=== PATIENT | female | born 1985 | race Caucasian/White ===

== ENCOUNTER 2017-05-26 10:46 | Emergency (ER) | payer MEDICAID ==
[~2017-05-26] VITALS: Ht 165.1 cm; Wt 83.5 kg
[~2017-05-26 10:46] MED LIST: CEPH-443 PO; ESOM20CA; PHEN-537 PO
[2017-05-26 10:54] VITALS: Ht 165.1 cm; Wt 83.5 kg
[2017-05-26] MEDS ORDERED: FLUT9.9S NASAL (11:07)
[2017-05-26] MEDS ORDERED: AZIT250T94 PO (11:07)
[2017-05-26] MEDS ORDERED: [UNRECOGNIZED DRUG - CODE] PO (11:07)
[2017-05-26] MEDS ORDERED: [UNRECOGNIZED DRUG - CODE] PO (11:08)
--- NOTE | 2017-05-26 11:13 | ERD ---
ER Documentation Chief Complaint Date/Time DATE: 05/26/17 TIME: 11:11 Chief Complaint Complains of right ear pain and sorethroat HPI This 32-year-old female presents with right ear pain for last 3-4 days. She also has sore throat and nasal congestion. There is no history of fevers, chest pain, shortness breath, vomiting, abdominal pain ROS All systems reviewed and are negative except as per history of present illness. Medications Home Meds Active Scripts Guaifen/Phenyleph/Acetaminophn (Sudafed PE Pressure+Pain+Mucus) 1 Each Tablet, 1 EACH PO BID, #14 TAB Prov:ASHLEY FIELDS MD 05/26/17 Fluticasone Propionate (Flonase Allergy Relief) 9.9 Ml [place].susp, 1 SPRAY NASAL DAILY, #1 BOTTLE TO EACH NOSTRIL Prov:ASHLEY FIELDS MD 05/26/17 Azithromycin* (Zithromax*) 250 Mg Tablet, 250 MG PO .ZPACK DIRECTED, #6 TAB TAKE 500 MG (2 TABS) THE FIRST DAY THEN 250 MG (1 TAB) DAYS 2-5 Prov:ASHLEY FIELDS MD 05/26/17 Phenazopyridine Hcl* (Pyridium*) 100 Mg Tab, 100 MG PO TID Y for URINARY PAIN, # 8 TAB Prov:LEISA DESAI PA-C 09/11/16 Cephalexin* (Keflex*) 500 Mg Capsule, 500 MG PO QID for 7 Days, CAP Prov:LEISA DESAI PA-C 09/11/16 Reported Medications Esomeprazole Mag Trihydrate (Nexium) 20 Mg Capsule. 07/10/14 Discontinued Scripts Guaifen/Phenyleph/Acetaminophn (Tylenol Sinus Severe Caplet) 1 Each Tablet, 1 EACH PO BID, #14 TAB Prov:ASHLEY FIELDS MD 05/26/17 Allergies Allergies: Coded Allergies: No Known Allergy (Unverified , 07/10/14) PMhx/Soc History of Surgery: No Anesthesia Reaction: No Hx Neurological Disorder: No Hx Respiratory Disorders: No Hx Cardiac Disorders: No Hx Psychiatric Problems: No Hx Miscellaneous Medical Probl: No Hx Alcohol Use: No Hx Substance Use: No Hx Tobacco Use: No Physical Exam Vitals Vital Signs Date Time Temp Pulse Resp B/P Pulse Ox O2 Delivery O2 Flow Rate FiO2 05/26/17 10:54 98.6 81 20 126/65 94 Physical Exam Const: [], [id number] per Head: Atraumatic Eyes: Normal Conjunctiva ENT: Normal External Ears, Nose and Mouth. Right TM is opaque with yellow fluid behind the TM. Left TM shows clear fluid. There is postnasal drip and airway is patent. Neck: Full range of motion..~ No meningismus. Resp: Clear to auscultation bilaterally Cardio: Regular rate and rhythm, no murmurs Abd: Soft, non tender, non distended. Normal bowel sounds Skin: No petechiae or rashes Back: No midline or flank tenderness Ext: No cyanosis, or edema Neur: Awake and alert Psych: Normal Mood and Affect Procedures/MDM Patient presents with URI symptoms and signs of otitis media. She will treated with Zithromax, Tylenol sinus and Flonase. The patient was stable with no new complaints during the ER course. Clinically, there is no current evidence to suggest meningitis, sepsis, acute abdomen, pneumonia, acute coronary syndrome, pulmonary embolism, or any other emergent condition appearing to require further evaluation or hospitalization. The patient should certainly return for any new or worsening symptoms per the aftercare instructions. They should otherwise follow-up with her primary care doctor for reevaluation this week. Departure Diagnosis: Primary Impression: Otitis media Otitis media type: unspecified Laterality: right Chronicity: unspecified Qualified Code: H66.91 - Right otitis media, unspecified chronicity, unspecified otitis media type Condition: Stable Patient Instructions: Otitis Media, Abx Tx (Adult) Additional Instructions: Cheque otro vez con young doctor primario en el proximo [place] or regresa para mas o nueva simptomas. ASHLEY FIELDS MD May 26, 2017 11:13
== END 2017-05-26 11:28 | disposition home or self-care (01) ==
LOC: FTE 10:46
DX: H66.91 Otitis media, unspecified, right ear (principal)
CPT/HCPCS: 99283

== ENCOUNTER 2017-06-10 10:21 | Emergency (ER) | END 2017-06-10 10:54 | disposition home or self-care (01) | DX: M25.531 Pain in right wrist (principal); M25.532 Pain in left wrist; L25.9 Unspecified contact dermatitis, unspecified cause ==

== ENCOUNTER 2017-09-01 14:17 | Emergency (ER) | payer MEDICAID ==
[~2017-09-01] VITALS: Ht 160 cm; Wt 90.0 kg
[~2017-09-01 14:17] MED LIST changes: +AZIT250T94 PO; +CETI-240 PO; +FLUT9.9S NASAL; +PRED20TA PO; +TRIA15CR55 TOP; +[UNRECOGNIZED DRUG - CODE] PO
[2017-09-01 14:22] VITALS: Ht 160 cm; Wt 90.0 kg
[2017-09-01] MEDS ORDERED: AMOX500C2 PO (15:13)
[2017-09-01] MEDS ORDERED: IBUP-1542 PO (15:13)
--- NOTE | 2017-09-01 15:15 | ERD ---
ER Documentation Chief Complaint Date/Time DATE: 09/01/17 TIME: 15:[address],ear ache HPI 32-year-old female presents with a 2 day history of sore throat ear pain subjective fevers. She has cough, vomiting, abdominal pain, neck stiffness, rashes. ROS All systems reviewed and are negative except as per history of present illness. Medications Home Meds Active Scripts Ibuprofen* (Motrin*) 600 Mg Tab, 600 MG PO Q6, #15 TAB Prov:ASHLEY FIELDS MD 09/01/17 Amoxicillin* (Amoxicillin*) 500 Mg Cap, 500 MG PO TID for 10 Days, CAP Prov:ASHLEY FIELDS MD 09/01/17 Cetirizine Hcl* (Cetirizine Hcl*) 10 Mg Tablet, 10 MG PO DAILY, #15 TAB Prov:ASHLEY FIELDS MD 06/10/17 Triamcinolone Acetonide (Triamcinolone Acetonide) 0.1% - 15 Gm Cream.gm., 1 APPLIC TOP QID for 7 Days, #1 TUB 30G Prov:ASHLEY FIELDS MD 06/10/17 Prednisone* (Prednisone*) 20 Mg Tab, 40 MG PO DAILY for 5 Days, TAB Prov:ASHLEY FIELDS MD 06/10/17 Guaifen/Phenyleph/Acetaminophn (Sudafed PE Pressure+Pain+Mucus) 1 Each Tablet, 1 EACH PO BID, #14 TAB Prov:ASHLEY FIELDS MD 05/26/17 Fluticasone Propionate (Flonase Allergy Relief) 9.9 Ml [place].susp, 1 SPRAY NASAL DAILY, #1 BOTTLE TO EACH NOSTRIL Prov:ASHLEY FIELDS MD 05/26/17 Azithromycin* (Zithromax*) 250 Mg Tablet, 250 MG PO .ZPACK DIRECTED, #6 TAB TAKE 500 MG (2 TABS) THE FIRST DAY THEN 250 MG (1 TAB) DAYS 2-5 Prov:ASHLEY FIELDS MD 05/26/17 Phenazopyridine Hcl* (Pyridium*) 100 Mg Tab, 100 MG PO TID Y for URINARY PAIN, # 8 TAB Prov:LEISA DESAI PA-C 09/11/16 Cephalexin* (Keflex*) 500 Mg Capsule, 500 MG PO QID for 7 Days, CAP Prov:LEISA DESAI PA-C 09/11/16 Reported Medications Esomeprazole Mag Trihydrate (Nexium) 20 Mg Capsule. 07/10/14 Allergies Allergies: Coded Allergies: No Known Allergy (Unverified , 06/10/17) PMhx/Soc History of Surgery: No Anesthesia Reaction: No Hx Neurological Disorder: No Hx Respiratory Disorders: No Hx Cardiac Disorders: No Hx Psychiatric Problems: No Hx Miscellaneous Medical Probl: No Hx Alcohol Use: No Hx Substance Use: No Hx Tobacco Use: No Physical Exam Vitals Vital Signs Date Time Temp Pulse Resp B/P Pulse Ox O2 Delivery O2 Flow Rate FiO2 09/01/17 14:22 98.1 99 18 140/90 99 Physical Exam Const: [] Letter, [id number]. Head: Atraumatic Eyes: Normal Conjunctiva ENT: Normal External Ears, Nose and Mouth. TMs normal. Tonsils are 3+ with exudate. Uvula midline and airway patent. Neck: Full range of motion..~ No meningismus. Resp: Clear to auscultation bilaterally Cardio: Regular rate and rhythm, no murmurs Abd: Soft, non tender, non distended. Normal bowel sounds Skin: No petechiae or rashes Back: No midline or flank tenderness Ext: No cyanosis, or edema Neur: Awake and alert Psych: Normal Mood and Affect Results 24 hrs Current Medications Medications (Trade) Dose Ordered Sig/Elmo Route PRN Reason Start Time Stop Time Status Last Admin Dose Admin Ibuprofen (Motrin) 600 mg ONCE ONCE PO 09/01/17 15:30 09/01/17 15:31 Procedures/MDM Patient presents with signs of acute exudative pharyngitis. She will treated with amoxicillin and ibuprofen. There is no evidence of abscess or airway obstruction. The patient was stable with no new complaints during the ER course. Clinically, there is no current evidence to suggest meningitis, sepsis, acute abdomen, pneumonia, acute coronary syndrome, pulmonary embolism, or any other emergent condition appearing to require further evaluation or hospitalization. The patient should certainly return for any new or worsening symptoms per the aftercare instructions. They should otherwise follow-up with her primary care doctor for reevaluation this week. Departure Diagnosis: Primary Impression: Pharyngitis Pharyngitis/tonsillitis etiology: unspecified etiology Qualified Code: J02.9 - Pharyngitis, unspecified etiology Condition: Stable Patient Instructions: Pharyngitis, Strep (Presumed) Additional Instructions: Cheque otro vez con young doctor primario en [place] or regresa para mas o nueva simptomas. ASHLEY FIELDS MD Sep 01, 2017 15:15
[2017-09-01] MEDS ORDERED: IBUPROFEN 600 MG TAB PO ONE (15:30)
[2017-09-01 15:31] VITALS: BP 132/85; PULSE 75; RESP 18; TEMP 98
[2017-09-03] MEDS ORDERED: CLIN-73 PO (15:58)
[2017-09-03] MEDS ORDERED: HYDR-906 PO (15:58)
[2017-09-03] MEDS ORDERED: PRED20TA PO (15:58)
== END 2017-09-01 15:32 | disposition home or self-care (01) ==
LOC: FTE 14:17
DX: J02.9 Acute pharyngitis, unspecified (principal)
CPT/HCPCS: Z7502; Z7610; 99283

== ENCOUNTER 2017-09-03 14:05 | Emergency (ER) | END 2017-09-03 16:29 | disposition home or self-care (01) | DX: J02.9 Acute pharyngitis, unspecified (principal) ==

== ENCOUNTER 2017-11-04 09:39 | Emergency (ER) | payer MEDICAID ==
[~2017-11-04] VITALS: Wt 81.0 kg
[~2017-11-04 09:39] MED LIST changes: +AMOX500C2 PO; +CLIN-73 PO; +HYDR-906 PO; +IBUP-1542 PO
[2017-11-04] MEDS ORDERED: KETOROLAC 60 MG INJ IM STA (10:30)
--- NOTE | 2017-11-04 10:43 | ERD ---
ER Documentation Chief Complaint Chief Complaint NECK AND BACK PAIN X2 DAYS, NO INJURY, ALSO NUMBNESS ON BILAT ARMS HPI Patient is a 32-year-old female who presents with pain and paresthesias in her bilateral upper extremities. She has had this before as she has a history of tendinitis. She has been taking Tylenol but it does not help. There has been no trauma. No fever. ROS All systems reviewed and are negative except as per history of present illness. Medications Home Meds Active Scripts Prednisone* (Prednisone*) 20 Mg Tab, 40 MG PO DAILY for 5 Days, TAB Prov:LEISA DESAI PA-C 09/03/17 Hydrocodone/Acetaminophen ([place] 5-325 Tablet) 1 Each Tablet, 1 TAB PO Q6H Y for PAIN, #7 TAB Prov:LEISA DESAI PA-C 09/03/17 Clindamycin Hcl* (Clindamycin Hcl*) 300 Mg Capsule, 300 MG PO TID for 10 Days, CAP Prov:LEISA DESAI PA-C 09/03/17 Ibuprofen* (Motrin*) 600 Mg Tab, 600 MG PO Q6, #15 TAB Prov:ASHLEY FIELDS MD 09/01/17 Amoxicillin* (Amoxicillin*) 500 Mg Cap, 500 MG PO TID for 10 Days, CAP Prov:ASHLEY FIELDS MD 09/01/17 Cetirizine Hcl* (Cetirizine Hcl*) 10 Mg Tablet, 10 MG PO DAILY, #15 TAB Prov:ASHLEY FIELDS MD 06/10/17 Triamcinolone Acetonide (Triamcinolone Acetonide) 0.1% - 15 Gm Cream.gm., 1 APPLIC TOP QID for 7 Days, #1 TUB 30G Prov:ASHLEY FIELDS MD 06/10/17 Prednisone* (Prednisone*) 20 Mg Tab, 40 MG PO DAILY for 5 Days, TAB Prov:ASHLEY FIELDS MD 06/10/17 Guaifen/Phenyleph/Acetaminophn (Sudafed PE Pressure+Pain+Mucus) 1 Each Tablet, 1 EACH PO BID, #14 TAB Prov:ASHLEY FIELDS MD 05/26/17 Fluticasone Propionate (Flonase Allergy Relief) 9.9 Ml [place].susp, 1 SPRAY NASAL DAILY, #1 BOTTLE TO EACH NOSTRIL Prov:ASHLEY FIELDS MD 05/26/17 Azithromycin* (Zithromax*) 250 Mg Tablet, 250 MG PO .RADHACK DIRECTED, #6 TAB TAKE 500 MG (2 TABS) THE FIRST DAY THEN 250 MG (1 TAB) DAYS 2-5 Prov:ASHLEY FIELDS MD 05/26/17 Phenazopyridine Hcl* (Pyridium*) 100 Mg Tab, 100 MG PO TID Y for URINARY PAIN, # 8 TAB Prov:LEISA DESAI PA-C 09/11/16 Cephalexin* (Keflex*) 500 Mg Capsule, 500 MG PO QID for 7 Days, CAP Prov:LEISA DESAI PA-C 09/11/16 Reported Medications Esomeprazole Mag Trihydrate (Nexium) 20 Mg Capsule. 07/10/14 Allergies Allergies: Coded Allergies: No Known Allergy (Unverified , 06/10/17) PMhx/Soc Medical and Surgical Hx: pt denies Medical Hx, pt denies Surgical Hx History of Surgery: No Anesthesia Reaction: No Hx Neurological Disorder: No Hx Respiratory Disorders: No Hx Cardiac Disorders: No Hx Psychiatric Problems: No Hx Miscellaneous Medical Probl: No Hx Alcohol Use: No Hx Substance Use: No Hx Tobacco Use: No Smoking Status: Never smoker FmHx Family History: No diabetes Physical Exam Vitals Vital Signs Date Time Temp Pulse Resp B/P Pulse Ox O2 Delivery O2 Flow Rate FiO2 11/04/17 09:41 98.2 90 17 132/60 98 Physical Exam Const: [] Head: Atraumatic Eyes: Normal Conjunctiva ENT: Normal External Ears, Nose and Mouth. Neck: Full range of motion..~ No meningismus. Resp: Clear to auscultation bilaterally Cardio: Regular rate and rhythm, no murmurs Skin: No petechiae or rashes Back: No midline or flank tenderness Ext: No cyanosis, or edema Results 24 hrs Current Medications Medications (Trade) Dose Ordered Sig/Elmo Route PRN Reason Start Time Stop Time Status Last Admin Dose Admin Ketorolac Tromethamine (Toradol) 60 mg ONCE STAT IM 11/04/17 10:30 11/04/17 10:31 DC Procedures/MDM 32-year-old female presents with pain and paresthesias in her bilateral upper extremity. She has had these symptoms in the past secondary to tendinitis. Patients is alert, oriented, well appearing, and in no distress with normal vital signs. There is no fever, tachycardia, or tachypnea. She is neurovascularly intact. She was given Toradol here in the emergency room and discharged with ibuprofen and Flexeril. Patient counseled regarding my diagnostic impression and care plan. Prior to discharge all questions answered. Pt agrees with treatment plan and understands strict return precautions. Pt is instructed to follow up with primary care provider within 24-48 hours. Precautionary instructions provided including instructions to return to the ER if not improving or for any worsening or changing symptoms or concerns. Departure Diagnosis: Primary Impression: Myalgia Additional Impression: Paresthesia Condition: Stable ARSENIO GRANADO PA-C Nov 04, 2017 10:43
[2017-11-04] MEDS ORDERED: CYCL-319 PO (10:44)
[2017-11-04] MEDS ORDERED: IBUP800T25 PO (10:44)
== END 2017-11-04 11:08 | disposition home or self-care (01) ==
LOC: FTE 09:39
DX: M79.1 Myalgia (principal); R20.2 Paresthesia of skin
CPT/HCPCS: 96372; J1885; Z7502

== ENCOUNTER 2017-11-07 15:34 | Emergency (ER) | payer MEDICAID ==
[~2017-11-07] VITALS: Ht 167.6 cm; Wt 81.8 kg
[~2017-11-07 15:34] MED LIST changes: +CYCL-319 PO; +IBUP800T25 PO
[2017-11-07 15:43] VITALS: Ht 167.6 cm; Wt 81.8 kg
[2017-11-07] MEDS ORDERED: KETOROLAC 30 MG INJ IM STA (17:07)
--- NOTE | 2017-11-07 17:28 | ERD ---
ER Documentation Chief Complaint Chief Complaint Complains of numbness and tingling Hx of Anxiety HPI This is a 32-year-old female presenting to emergency department for pain and numbness to bilateral hands and arms 2 days. Patient states she has intermittent numbness and tingling that starts in her hands and travels upwards towards her elbow and entire arm. Patient states pain is worse at night and feels like pressure. No injury or trauma. 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 Patient states symptoms are exacerbated by driving. Patient has been diagnosed with tendinitis in the past and took medication for this. Patient was seen here previously 2 days ago and was given prescription for flexeril and ibuprofen. Patient states these medications are not helpful. Patient states she was seen here "a few months ago" for same problem and was given medication that improved her symptoms. ROS All systems reviewed and are negative except as per history of present illness. Medications Home Meds Active Scripts Hydrocodone/Acetaminophen ([place] 5-325 Tablet) 1 Each Tablet, 1 TAB PO Q6H Y for PAIN, #7 TAB Prov:SHAI SÁNCHEZ NP 11/07/17 Ibuprofen* (Motrin*) 800 Mg Tab, 800 MG PO Q6, #30 TAB Prov:ARSENIO GRANADO PA-C 11/04/17 Cyclobenzaprine Hcl* (Cyclobenzaprine Hcl*) 10 Mg Tablet, 10 MG PO BID, #20 TAB Prov:ARSENIO GRANADO PA-C 11/04/17 Prednisone* (Prednisone*) 20 Mg Tab, 40 MG PO DAILY for 5 Days, TAB Prov:LEISA DESAI PA-C 09/03/17 Hydrocodone/Acetaminophen ([place] 5-325 Tablet) 1 Each Tablet, 1 TAB PO Q6H Y for PAIN, #7 TAB Prov:LEISA DESAI PA-C 09/03/17 Clindamycin Hcl* (Clindamycin Hcl*) 300 Mg Capsule, 300 MG PO TID for 10 Days, CAP Prov:LEISA DESAI PA-C 09/03/17 Ibuprofen* (Motrin*) 600 Mg Tab, 600 MG PO Q6, #15 TAB Prov:ASHLEY FIELDS MD 09/01/17 Amoxicillin* (Amoxicillin*) 500 Mg Cap, 500 MG PO TID for 10 Days, CAP Prov:ASHLEY FIELDS MD 09/01/17 Cetirizine Hcl* (Cetirizine Hcl*) 10 Mg Tablet, 10 MG PO DAILY, #15 TAB Prov:ASHLEY FIELDS MD 06/10/17 Triamcinolone Acetonide (Triamcinolone Acetonide) 0.1% - 15 Gm Cream.gm., 1 APPLIC TOP QID for 7 Days, #1 TUB 30G Prov:ASHLEY FIELDS MD 06/10/17 Prednisone* (Prednisone*) 20 Mg Tab, 40 MG PO DAILY for 5 Days, TAB Prov:ASHLEY FIELDS MD 06/10/17 Guaifen/Phenyleph/Acetaminophn (Sudafed PE Pressure+Pain+Mucus) 1 Each Tablet, 1 EACH PO BID, #14 TAB Prov:ASHLEY FIELDS MD 05/26/17 Fluticasone Propionate (Flonase Allergy Relief) 9.9 Ml [place].susp, 1 SPRAY NASAL DAILY, #1 BOTTLE TO EACH NOSTRIL Prov:ASHLEY FIELDS MD 05/26/17 Azithromycin* (Zithromax*) 250 Mg Tablet, 250 MG PO .ZPACK DIRECTED, #6 TAB TAKE 500 MG (2 TABS) THE FIRST DAY THEN 250 MG (1 TAB) DAYS 2-5 Prov:ASHLEY FIELDS MD 05/26/17 Phenazopyridine Hcl* (Pyridium*) 100 Mg Tab, 100 MG PO TID Y for URINARY PAIN, # 8 TAB Prov:LEISA DESAI PA-C 09/11/16 Cephalexin* (Keflex*) 500 Mg Capsule, 500 MG PO QID for 7 Days, CAP Prov:LEISA DESAI PA-C 09/11/16 Reported Medications Esomeprazole Mag Trihydrate (Nexium) 20 Mg Capsule. 07/10/14 Allergies Allergies: Coded Allergies: No Known Allergy (Unverified , 11/07/17) PMhx/Soc History of Surgery: No Anesthesia Reaction: No Hx Neurological Disorder: No Hx Respiratory Disorders: No Hx Cardiac Disorders: No Hx Psychiatric Problems: No Hx Miscellaneous Medical Probl: No Hx Alcohol Use: No Hx Substance Use: No Hx Tobacco Use: No Smoking Status: Never smoker Physical Exam Vitals Vital Signs Date Time Temp Pulse Resp B/P Pulse Ox O2 Delivery O2 Flow Rate FiO2 11/07/17 15:43 98.4 79 20 145/66 98 Physical Exam Const: No acute distress, alert Head: Atraumatic Eyes: Normal Conjunctiva ENT: Normal External Ears, Nose and Mouth. Neck: Full range of motion..~ No meningismus. Resp: Clear to auscultation bilaterally. No wheezing, rhonchi or crackles. No stridor or labored breathing. Cardio: Regular rate and rhythm, no murmurs Abd: Soft, non tender, non distended. Normal bowel sounds Skin: No petechiae or rashes Back: No midline or flank tenderness Ext: No cyanosis, or edema. Strength equal bilaterally to upper extremities. Capillary refill less than 3 seconds. No swelling. Full range of motion to wrist elbows and shoulders. No erythema, laceration or ecchymosis. Radial pulses 2+ bilaterally. Positive Phalen Maneuver. Neur: Awake and alert Psych: Normal Mood and Affect Result Diagram: 11/07/17 1721 11/07/17 1721 Results 24 hrs Laboratory Tests Test 11/07/17 17:21 White Blood Count 7.710^3/ul Red Blood Count 4.0810^6/ul Hemoglobin 12.3g/dl Hematocrit 38.0% Mean Corpuscular Volume 93.1fl Mean Corpuscular Hemoglobin 30.1pg Mean Corpuscular Hemoglobin Concent 32.4g/dl Red Cell Distribution Width 14.3% Platelet Count 57572^3/UL Mean Platelet Volume 10.1fl Neutrophils % 59.6% Lymphocytes % 31.2% Monocytes % 7.6% Eosinophils % 1.0% Basophils % 0.3% Nucleated Red Blood Cells % 0.0/100WBC Neutrophils # 4.610^3/ul Lymphocytes # 2.410^3/ul Monocytes # 0.610^3/ul Eosinophils # 0.110^3/ul Basophils # 0.010^3/ul Nucleated Red Blood Cells # 0.010^3/ul Sodium Level 143mmol/L Potassium Level 4.0mmol/L Chloride Level 107mmol/L Carbon Dioxide Level 27mmol/L Anion Gap 13 Blood Urea Nitrogen 10mg/dl Creatinine 0.77mg/dl Glucose Level 98mg/dl Calcium Level 9.3mg/dl Current Medications Medications (Trade) Dose Ordered Sig/Elmo Route PRN Reason Start Time Stop Time Status Last Admin Dose Admin Ketorolac Tromethamine (Toradol) 30 mg ONCE STAT IM 11/07/17 17:07 11/07/17 17:09 DC 11/07/17 17:23 Procedures/MDM This is a 32-year-old female presenting to emergency department for pain and paresthesia to bilateral hands that radiates proximally to bilateral arms. Patient states symptoms are exacerbated by driving and worse at night. Patient had positive Phalen maneuver on physical exam. Patient was seen here 2 days ago and was given prescription for ibuprofen and Flexeril and states these medications are not helping. No hand weakness. Patient's bander hand strength is equal bilaterally to upper extremities. No neck, shoulder or chest pain. Patient has full mobility to upper extremities. Capillary refill is less than 3 seconds. Radial pulses are 2+ bilaterally. No limited range of motion. Patient states she has also been fatigued for the past 2 months and is requesting blood work to rule out anemia. CBC and BMP were ordered. CBC shows no significant anemia or infection. CMP shows no significant electrolyte imbalance. Normal glucose. Patient is stable throughout ED visit. Patient appears in no acute distress. Patient likely has carpal tunnel syndrome versus tendinitis. Low suspicion for DVT, hyperglycemia. Patient is appropriate for outpatient management and instructed to follow-up with primary care provider in the next 2-3 days for reassessment and additional management. Resources provided. Return to ED for any high fever, chest pain, difficulty breathing, shortness breath, wheezing, vomiting, diarrhea, abdominal pain or any new or worsening symptoms. Patient verbalizes understanding. All questions answered at discharge. Syrian translation used during this encounter. Disclaimer: Inadvertent spelling and grammatical errors are likely due to EHR/ dictation software use and do not reflect on the overall quality of patient care. Also, please note that the electronic time recorded on this note does not necessarily reflect the actual time of the patient encounter. Departure Diagnosis: Primary Impression: Hand paresthesia Condition: Stable SHAI SÁNCHEZ NP Nov 07, 2017 17:28
[2017-11-07 17:31] LABS: BASOPHILS % 0.3 % (0.0-2.0); EOSINOPHILS # 0.1 10^3/ul (0.0-0.5); HEMOGLOBIN 12.3 g/dl (12.0-16.0); LYMPHOCYTES # 2.4 10^3/ul (0.8-2.9); LYMPHOCYTES % 31.2 % (15.0-51.0); MEAN CORPUSCULAR HEMOGLOBIN 30.1 pg (29.0-33.0); MEAN CORPUSCULAR HGB CONC 32.4 g/dl (32.0-37.0); MEAN CORPUSCULAR VOLUME 93.1 fl (82.0-101.0); MEAN PLATELET VOLUME 10.1 fl (7.4-10.4); MONOCYTE # 0.6 10^3/ul (0.3-0.9); MONOCYTES % 7.6 % (0.0-11.0); NEUTROPHIL # 4.6 10^3/ul (1.6-7.5); NEUTROPHILS % 59.6 % (39.0-77.0); PLATELET COUNT 323 10^3/UL (140-415); RED BLOOD COUNT 4.08 10^6/ul (4.20-5.40); RED CELL DISTRIBUTION WIDTH 14.3 % (11.5-14.5); WHITE BLOOD COUNT 7.7 10^3/ul (4.8-10.8)
[2017-11-07 17:58] LABS: CALCIUM 9.3 mg/dl (8.4-10.2); CREATININE 0.77 mg/dl (0.44-1.00)
[2017-11-07] MEDS ORDERED: HYDR-906 PO (18:37)
== END 2017-11-07 19:01 | disposition home or self-care (01) ==
LOC: FTE 15:34
DX: R20.2 Paresthesia of skin (principal)
CPT/HCPCS: 36415; 80048; 85025; 96372; J1885; Z7502

== ENCOUNTER 2018-07-16 22:14 | Emergency (ER) | END 2018-07-17 00:57 | disposition home or self-care (01) ==